=== PATIENT | female | born 1990 | race Caucasian/White ===

== ENCOUNTER 2021-10-02 17:28 | Outpatient (REF) | payer BC, SELFPAY ==
[2021-10-02 16:22] LABS: ALT 48 U/L (14-59); AST 22 U/L (15-37); Alkaline Phosphatase 73 U/L (46-116); BUN 11 mg/dL (7-18); Bilirubin, Total 0.6 mg/dL (0.2-1.0); CREATININE 0.7 mg/dL (0.55-1.02); Calcium 9.1 mg/dL (8.5-10.1); Calculated LDL 181 mg/dL (<100); Chloride 106 mmol/L (98-107); Cholesterol 270 mg/dL (<200); Glucose 119 mg/dL (74-106); HDL Cholesterol 46 mg/dL (40-60); Potassium 4.8 mmol/L (3.5-5.1); Sodium 142 mmol/L (136-145); Total Protein 7.3 g/dL (6.4-8.2); Triglyceride 215 mg/dL (<150)
== END 2021-10-02 17:29 | disposition home or self-care (01) ==
LOC: NCHCN 17:28
PROVIDERS: Visit Provider Nurse Practitioner Family
DX: Z00.00 Encounter for general adult medical examination without abnormal findings (principal); R74.01 Elevation of levels of liver transaminase levels; E78.70 Disorder of bile acid and cholesterol metabolism, unspecified
CPT/HCPCS: 80053; 80061

== ENCOUNTER 2021-11-21 11:57 | Outpatient (REF) | payer BC, SELFPAY ==
--- NOTE | 2021-11-21 09:05 | PAPFT_PTH ---
PATIENT: Tammy Simeon LOC: [facility] U#:[id number] AGE/SX: 31/F ROOM: RE11/21/[address]: Felicia Harman : 1990 BED: DIS: 11/21/2021 SPEC #: [id number] RECD: 11/21/21 16:01 STATUS: FIONA RERadha #: [id number] YOUNG: 11/21/21 09:[address]: Felicia Harman DEPT: [facility] Cytology RECD BY: Isadora Cabrera ENTERED: 11/21/21 16:02 SP TYPE: PAPFT OTHR DR: Unknown,Unknown Tissues: 1 - CX/ENDOCX FOR PAP SMEARS Procedures: PAP THIN PREP/[facility]VM Screening Comments: [id number]
== END 2021-11-21 11:58 | disposition home or self-care (01) ==
LOC: NCHCN 11:57
PROVIDERS: Visit Provider Nurse Practitioner Family
DX: Z00.00 Encounter for general adult medical examination without abnormal findings (principal); Z12.4 Encounter for screening for malignant neoplasm of cervix
CPT/HCPCS: 88142

== ENCOUNTER 2023-01-07 18:15 | Outpatient (REF) | payer BC, SELFPAY ==
[2023-01-07 19:03] LABS: Abs Immature Grans 0.03 10^3/uL (0.0-0.06); Absolute Basophil Count 0.02 10^3/uL (0.0-0.2); Absolute Eosinophil Count 0.04 10^3/uL (0.0-0.7); Absolute Lymphocyte Count 2.08 10^3/uL (1.2-3.4); Absolute Monocyte Count 0.35 10^3/uL (0.1-0.8); Absolute Neutrophil Count 4.23 10^3/uL (1.2-6.7); Basophils % 0.3; Eosinophils % 0.6; HCT 42.5 % (36.0-46.0); HGB 14.4 g/dL (11.2-15.7); Immature Grans % 0.4; Lymphocytes % 30.8; MCH 27.8 pg (27.0-33.0); MCHC 33.9 % (32.0-36.0); MCV 82 fL (80-95); MPV 9.6 fL (8.0-11.0); Monocytes % 5.2; Neutrophils % 62.7; Platelet Count 386 10^3/uL (130-400); RBC 5.18 10^6/uL (3.93-5.22); RDW 13.2 % (11.7-14.6); RDW-SD 39.3 fL; WBC 6.75 10^3/uL (4.4-10.8)
[2023-01-07 19:21] LABS: ALT 52 U/L (14-59); Albumin 4.3 g/dL (3.4-5.0); Alkaline Phosphatase 83 U/L (46-116); Anion Gap 10.7 mmol/L (3-11); BUN 12 mg/dL (7-18); Bilirubin, Total 0.3 mg/dL (0.2-1.0); CO2 24.3 mmol/L (21.0-32.0); CREATININE 0.7 mg/dL (0.55-1.02); Calcium 9.5 mg/dL (8.5-10.1); Chloride 101 mmol/L (98-107); Estimated GFR 119.24 (mL/min/1.73m2); Glucose 180 mg/dL (74-106); Sodium 136 mmol/L (136-145); Total Protein 8.1 g/dL (6.4-8.2); Uric Acid 5.7 mg/dL (2.6-6.0)
[2023-01-07 19:31] LABS: AST 31 U/L (15-37)
[2023-01-07 19:40] LABS: Hemoglobin A1C 5.8 % (<5.7)
== END 2023-01-07 18:16 | disposition home or self-care (01) ==
LOC: NCHCN 18:15
PROVIDERS: Visit Provider Nurse Practitioner Family
DX: R53.83 Other fatigue (principal); R73.9 Hyperglycemia, unspecified; R74.01 Elevation of levels of liver transaminase levels; M25.522 Pain in left elbow
CPT/HCPCS: 80053; 83036; 84443; 84550; 85025

== ENCOUNTER → 2023-07-02 00:49 | Outpatient (CLI) | payer BC, SELFPAY ==
--- NOTE | 2023-07-02 | DI.RAD_ITS ---
Exam(s) XR TIB/FIB RT EXAM: XR TIB/FIB RT CLINICAL HISTORY: ANT SHINT SPLINTS,S86.780B,INJURY. TECHNIQUE: 2D digital imaging was performed. Two views. COMPARISON: No exams were available for comparison FINDINGS: BONES: No acute fracture is present. No bony destructive lesion is seen. Visualized portion of knee a nd ankle joints are unremarkable. SOFT TISSUE: Normal. IMPRESSION: Unremarkable radiographs of the right tibia and fibula. DATA REPOSITORY: RADIATION DOSE DELIVERED:
== END ==
PROVIDERS: Visit Provider Family Medicine
DX: S86.899D Other injury of other muscle(s) and tendon(s) at lower leg level, unspecified leg, subsequent encounter (principal); X58.XXXD Exposure to other specified factors, subsequent encounter
CPT/HCPCS: 73590

== ENCOUNTER → 2023-09-16 02:50 | Outpatient (CLI) | payer BC, SELFPAY ==
--- NOTE | 2023-09-16 07:30 | DI.MRI_ITS ---
Exam(s) MR LOWER EXTREMITY RT WO EXAM: MR LOWER EXTREMITY RT WO CLINICAL HISTORY: muscle cyst vs injury,MEDIAL LT LEG MUSCLE BULGE,STRAIN,S86.911A TECHNIQUE: Multiplanar multisequence MRI was performed without intravenous contrast. COMPARISON: CR XR TIB/FIB RT from 07/02/2023 FINDINGS: BONES/JOINTS: No fracture or contusion pattern. No bone lesions identified. the knee is unremarkable as visualized. MUSCULOTENDINOUS STRUCTURES: Mild edema at the anterior aspect of the inferomedial aspect of the pat rocnemius muscle. This could indicate muscle strain. No discrete intramuscular hematoma. No drainable fluid collection. No evidence of lipoma or other mass. SOFT TISSUES: A marker was placed over the area of medial bulging. There is mild a edema in the subcu taneous fat and inferomedial aspect of the medial head of the gastrocnemius muscle. IMPRESSION: Mild edema in the inferomedial aspect of the medial head of the gastrocnemius muscle and adjacent sub cutaneous tissue. DATA REPOSITORY:
== END ==
PROVIDERS: PCP Nurse Practitioner Family; Visit Provider Student in an Organized Health Care Education/Training Program
DX: R22.41 Localized swelling, mass and lump, right lower limb (principal)
CPT/HCPCS: 73718

== ENCOUNTER 2023-10-26 18:39 | Outpatient (REF) | payer BC, SELFPAY ==
[2023-10-26 15:55] LABS: Hemoglobin A1C 5.8 % (<5.7)
[2023-10-26 16:24] LABS: ALT 39 U/L (14-59); AST 23 U/L (15-37); Albumin 4.2 g/dL (3.4-5.0); Alkaline Phosphatase 71 U/L (46-116); Anion Gap 10.4 mmol/L (3-11); BUN 10 mg/dL (7-18); Bilirubin, Total 0.4 mg/dL (0.2-1.0); CO2 25.6 mmol/L (21.0-32.0); CREATININE 0.7 mg/dL (0.55-1.02); Calcium 9.6 mg/dL (8.5-10.1); Calculated LDL 152 mg/dL (<100); Chloride 102 mmol/L (98-107); Cholesterol 264 mg/dL (<200); Estimated GFR 119.24 (mL/min/1.73m2); Glucose 111 mg/dL (74-106); HDL Cholesterol 60 mg/dL (40-60); Potassium 4.3 mmol/L (3.5-5.1); Sodium 138 mmol/L (136-145); Total Protein 7.8 g/dL (6.4-8.2); Triglyceride 262 mg/dL (<150)
== END 2023-10-26 18:40 | disposition home or self-care (01) ==
LOC: NCHCN 18:39
PROVIDERS: PCP Nurse Practitioner Family; Visit Provider Nurse Practitioner Family
DX: E78.70 Disorder of bile acid and cholesterol metabolism, unspecified (principal); R73.03 Prediabetes
CPT/HCPCS: 80053; 80061; 83036

== ENCOUNTER 2023-12-30 15:22 | Outpatient (REF) | payer BC, SELFPAY ==
--- OUTSIDE RECORDS SUMMARY | 2023-12-30 15:24 | XMS_ITS | Continuity of Care Document ---
Author Organization [facility] Address [address] [place] [address] Care Team Providers Care Engraver Copperplate Name Role Phone ELLEN NELSON APRN Primary Care Physician Encounter [facility] NBR [id number] Date(s): 12/09/23 - 12/09/23 [facility] [address], [place] [address] Encounter Diagnosis Strain of right gastrocnemius muscle(Discharge Diagnosis) - 12/09/23 Perez splint of right lower extremity(Discharge Diagnosis) - 12/09/23 Discharge Disposition: Home or Self Care Attending Physician: Caio Briceño MD Referring Physician: ELLEN NELSON APRN Allergies, Adverse Reactions, Alerts Substance Reaction Severity Status sulfa drugs Unknown Active Assessment and Plan Extracted from: Title:[place] right leg Author:Caio Briceño MD Da te:12/09/23 1.??Strain of right gastrocn emius muscle??S86.111A 2.??Perez splint of right lower extremity??S86.891A The patient demonstrates evidence of??fluid??collection about the distal medial aspect of the right gastrocnemius consistent with??a??probable myotendinous??injury with consequent??fluid accumulation. ??No elizabeth cyst is present. ??She also demonstrates evidence of a right perez splint. ??The treatment options were discussed with the patient??who will be??prescribed a course of physical therapy.?? I indicated that given the nonspecific accumulation of fluid,??this will likely??be??a cosmetic issue going forward??although??given the lack of cystic structure,??I am not sure that??anything could be done surgically to address this.?? The patient verbalized understanding and agreed with the above plan. ??All questions were answered. ??I like to see the patient in 8 weeks for follow-up. ?? I personally reviewed the patient's referral, outside consultation notes, previous radiographic images and results, and relevant tests. ?? Thank you for the courtesy of this referral. ? Future Appointments Medications No Known Medications Problem List Condition Confirmation Course Effective Dates Status H ealth Status Informant Perez splint of right lower extremity Confirmed Active Pain in right leg Confirmed Active Strain of right gastrocnemius muscle Confirmed Active Vital Signs Most recent to oldest [Reference Range]: 1 Peripheral Pulse Rate [60-100 bpm] 82 bp m (12/09/23 10:05 AM) Blood Pressure [90-140/60-90 mmHg] 110/7 0mmHg (12/09/23 10:05 AM) Mean Arterial Pressure, Cuff [65-140 mmH g] 83 mmHg (12/09/23 10:05 AM) Weight 83.91 kg (12/09/23 10:05 AM) Weight Measured (lbs) 184.99 lb (12/09/23 10:05 AM) Weight Dosing 83.910 kg (12/09/23 10:05 AM) Height 172.72 cm (12/09/23 10:05 AM) Height/Length Measured (inches) 68 inch (12/09/23 10:05 AM) BSA Measured 2.01 m2 (12/09/23 10:05 AM) Body Mass Index 28.13 kg/m2 (12/09/23 10:05 AM) Social History Social History Type Response Tobacco Never tobacco user T obacco Use:. Sex Hospital Discharge Instructions Follow Up Care 11/23/2023 15:21:02 With:Follow-up in 8 weeks Address: When: Unknown Physician Outpatient Note * Caio Briceño MD: PERFORM Event Display: Office Clinic Note Physician Authored Date: [id number] PADMAJA HERBERT :1990 Age:33 years Sex:Female Visit Date:12/09/2023 Primary Care Physician: ELLEN NELSON APRN Chief Complaint RIGHT LEG 2ND OPINION History of Present Illness Please send a copy this note to Ellen Nelson APRN. ?? 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 ??The patient states that??in March 2023, she began to train for a half marathon. ??By May 2023 she noticed bulging and fluid about the medial aspect of her right calf.?? The patient states that she had been dealing with??bad??shinsplints but denies focal injury to either lower extremity.?? The patient states that the fluid accumulation has not been painful although she has noted??pain??medially about the adjacent tibia.?? She states that??after driving for long periods of time she will experience recurrence of her pain. ??She denies??any pain with ambulation or stairs.?? She denies night pain, numbness, or tingling. ??She has been taking ibuprofen to address this. Physical Exam Vitals & Measurements HR:??82??(Peripheral)?? BP:??110/70?? SpO2:??99%?? HT:??172.72??cm?? WT:??83.91??kg?? BMI:??28.13?? Pain Score:??3?? BSA:??2.01?? The patient's??right??lower extremity is neurovascularly intact. ??Sensation and motor exam are intact distally. ??All digits are warm and pink.?? The patient is noted to ambulate with a normal gait and lorne. ??Right knee and ankle range of motion are painless.?? The??patient demonstrates??calves that are soft and nontender.?? When she flexes her??right calf,??mild, nontense fluid accumulations are noted about the distal extent of the medial calf border. ??She has tenderness in this locationwith??possible??defect??that is palpable??compared to the left side.?? She also has tenderness??abou t??the??medial border of the adjacent??tibia. Assessment/Plan 1.??Strain of right gastrocnemius muscle??S86.111A 2.??Perez splint of right lower extremity??S86.891A The patient demonstrates evidence of??fluid??collection about the distal medial aspect of the rightgastrocnemius consistent with??a??probable myotendinous??injury with consequent??fluid accumulation. ??No elizabeth cyst is present. ??She also demonstrates evidence of a right perez splint. ??The treatmen t options were discussed with the patient??who will be??prescribed a course of physical therapy.?? I indicated that given the nonspecific accumulation of fluid,??this will likely??be??a cosmetic issue going forward??although??given the lack of cystic structure,??I am not sure that??anything could be done surgically to address this.?? The patient verbalized understanding and agreed with the above plan. ??All questions were answered. ??I like to see the patient in 8 weeks for follow-up. ?? I personally reviewed the patient's referral, outside consultation notes, previous radiographic images and results, and relevant tests. ?? Thank you for the courtesy of this referral. Referral Orders Referral Management, Medical Service: Physical Therapy, Reason: PT OT: Right gastrocnemius strain with probable myotendinous injury, right perez splint, Start: 12/09/23 Follow Up Instructions With When Contact Information Follow-up in 8 weeks Additional Instructions: Problem List/Past Medical History Ongoing Pain in right leg Perez splint of right lower extremity Strain of right gastrocnemius muscle Historical No qualifying data Medications No active medications Allergies sulfa drugs Social History Electronic Cigarette/Vaping Electronic Cigarette Use: Never. Tobacco Never tobacco user Tobacco Use:. Diagnostic Results Diagnostic Study Interpretation: MRI of the patient's right leg obtained on 09/16/2023 demonstrates mild edema??about the medial aspect of the gastrocnemius??with fluid??accumulation in the subcutaneous tissue but no elizabeth cyst formation. Electronically Signed on 12/09/2023 16:20 EDT Caio Briceño MD Patient Care team information Care Team Personnel Name: ELLEN NELSON APRN Position: No Access Member Role: Primary Care Physician Address: Address: [facility] [address] [place] [address]- [place] Care Team Related Persons Name: LANRE HERBERT
--- OUTSIDE RECORDS SUMMARY | 2023-12-30 15:24 | XMS_ITS | Continuity of Care Document ---
Author Organization [facility] Address [address] [place] [address] Care Team Providers Care Service Station Operator Name Role Phone EDVIN NOBLE APRN Primary Care Physician Encounter [facility] NBR [id number] Date(s): 10/28/23 - 10/28/23 [facility] [address] [place] [address]- [place] Discharge Disposition: Home Patient Care team information Care Team Personnel Name: EDVIN NOBLE APRN Position: No Access Member Role: Primary Care Physician Address: Address: [address] [place], [place] [address]
--- OUTSIDE RECORDS SUMMARY | 2023-12-30 15:24 | XMS_ITS | Continuity of Care Document ---
Author Organization [facility] Address [address] [place] [address] Care Team Providers Care Cnc Manager Name Role Phone EDVIN NOBLE APRN Primary Care Physician [phone] Encounter [facility] NBR [id number] Date(s): 10/27/23 - 10/27/23 [facility] [address] [place] [address]- [place] Patient Care team information Care Team Personnel Name: EDVIN NOBLE APRN Position: No Access Member Role: Primary Care Physician Address: Address: [address] [place], [place] [address]
[2023-12-31 10:00] LABS: Source Nasal/Nares
[2023-12-31 10:37] LABS: COVID-19 PCR Negative (Negative)
== END 2023-12-30 15:23 | disposition home or self-care (01) ==
LOC: LBN 15:22
PROVIDERS: PCP Nurse Practitioner Family; Visit Provider Family Medicine
DX: B34.9 Viral infection, unspecified (principal)
CPT/HCPCS: 87635; 87637

== ENCOUNTER 2024-10-20 00:45 | Outpatient (CLI) | payer BC, SELFPAY ==
--- NOTE | 2024-10-20 | DI.MRI_ITS ---
Exam(s) MR BRAIN WO EXAM: MR BRAIN WO CLINICAL HISTORY: HEADACHE,R51.9 TECHNIQUE: Multiplanar multisequence MRI of the brain was performed. COMPARISON: No exams were available for comparison FINDINGS: CEREBRAL PARENCHYMA: There is no evidence of intracranial hemorrhage, mass effect, or shift of midline structures. There are no extra-axial fluid collections. Ventricles are not enlarged or shifted. There is no significant focal signal abnormality in the cerebellar hemispheres nor within the olivia, m idbrain, and thalami. There is no abnormal signal abnormality in the periventricular white matter. There is no significant focal signal abnormality evident on diffusion imaging to suggest acute ischem ic event. PITUITARY GLAND: No mass nor parasellar abnormality. No obvious abnormality in the cavernous sinuses. FLOW VOIDS: The expected flow void are noted. No evidence of obvious aneurysm nor obvious vascular ma lformation. PARANASAL SINUSES: Some mucosal thickening and retention cysts are noted in right maxillary sinus. N o associated fluid level. Other paranasal sinuses are clear and there are no mastoid effusions. ORBITS: No obvious findings. IMPRESSION: No significant intracranial findings on this noninfused MRI scan of the brain. There is a post inflammatory retention cyst in the floor of the right maxillary sinus which measures 1.8 x 1.4 cm. There is no associated fluid level nor bone dehiscence. Other paranasal sinuses are c lear. DATA REPOSITORY:
== END 2024-10-20 01:05 ==
LOC: DI 00:45
PROVIDERS: PCP Nurse Practitioner Family; Visit Provider Physician Assistant Medical
DX: R51.9 Headache, unspecified (principal); R93.0 Abnormal findings on diagnostic imaging of skull and head, not elsewhere classified
CPT/HCPCS: 70551

== ENCOUNTER 2025-01-11 15:05 | Emergency (ER) | payer BC, SELFPAY ==
--- NOTE | 2025-01-11 15:00 | RT.EKG_ITS ---
APPROVED REPORT Exam: Resting ECG Reason for Exam: sob Patient Location: E HR:112 bpm ECG Measurements Heart Rate 112 AXIS MO 150 P 77 QRSd 93 QRS 4 QT 330 T 29 QTc 451 Conclusion Sinus tachycardia...rate> 99 No STEMI
[2025-01-11 15:06] VITALS: BP 156/98; PULSE 111; RESP 16; TEMP 37.1; O2SAT 97
--- NOTE | 2025-01-11 15:41 | ED.GENADUL_ITS ---
Discharge Plan Disposition Patient Disposition: Home Condition: Stable Discharge Details Clinical Impression: Chest pain of uncertain etiology Primary Care Provider: Ellen Nelson ED Provider: Shay Tejada Home Meds and New Rx's Prescriptions: No Action No Known Home Meds Discharge Instructions Instructions: Chest Pain, Adult ED Additional Instructions: You were seen in the emergency department for the chest pain of uncertain cause, please talk to your primary care provider about possibly seeing cardiology for a treadmill stress test and possible echocardiogram if you have continued symptoms. There is no other abnormalities on your labs, no heart strain on the heart, no blood clot in the lungs, no significant signs of infection on your blood work, he had a calcified granuloma in the base of your right lung likely from an old upper respiratory infection years ago, this may need monitoring at sparse intervals to make sure it does not grow or change. Please return for any worsening symptoms especially chest pain with dizziness, shortness of breath, sweating. Referrals: Ellen Nelson [Primary Care Provider, Medicine] Discharge Data Discharge Date/Time-TO BE ENTERED AT DEPARTURE: 01/11/25 19:43 HPI General Date/Time Provider Initiated Documentation: 01/11/25 15:27 . HPI Narrative: 34 year-old female presents to ED today by POV/ambulating with a chief complaint of palpitations, chest tightness with some mild shortness of breath with onset for a couple weeks- worse on Wednesday. Quality described as generalized tightness, no radiation to diaphoresis, near syncope, fever, cough, URI. Severity is described as mild to moderate- not overtly painful. Palliating factors include nothing specific attempted. Provoking factors include nothing specific. Patient not anticoagulated. Related Data Home Medications ?Medication ?Instructions ?Recorded ?Confirmed Unknown [No Known Home Meds] 08/31/23 0 01/11/25 Allergies Allergy/AdvReac Type Severity Reaction Status Date / Time sulfadiazine Allergy Intermediate Hives Verified 01/11/25 15:09 kiwi AdvReac Other (See Verified 01/11/25 15:09 Comment) General Stated Complaint: Chest Pain ATREMIO: 3 Review of Systems All systems reviewed & are unremarkable except as noted in HPI and below Exam Narrative Exam Narrative: GENERAL APPEARANCE: Well-nourished, non-toxic, awake and alert, atraumatic, no acute distress. SKIN: Warm, pink, dry, intact, without rashes/lesions/ulcerations. HEAD: Normocephalic, atraumatic, normal hair distribution for gender/age. EYES: Normal conjunctiva, no exudates on lids/lashes. ENT: Nares patent, no circumoral cyanosis, no facial swelling NECK: Supple, trachea midline, painless cervical ROM. LUNGS/CHEST: Lungs CTA bilaterally, non-labored respirations, normal A/P diameter, symmetrical expansion, no chest wall deformity HEART (CV/PV): Regular rate and rhythm without murmur, no peripheral edema, no JVD. ABDOMEN: Soft, non-distended, no guarding. MSK: Normal ROM, no swelling/deformity to bilateral UEs or LEs, moving all extremities without weakness, no cyanosis, spine midline without tenderness, normal curvature. NEURO: Mental Status AAOx4 - alert to person, place, time, events No facial droop, no forehead involvement. Motor: No focal weakness - strength 5/5 in bilateral UEs and LEs, proximal and distal, symmetric. Sensory: sensation intact to light touch globally. Gait normal: patient ambulated without ataxia into ED room. PSYCH: euthymic, cooperative, pleasant, appropriate speech Course Vital Signs Vital signs: Vital Signs Temperature 37.1 C 01/11/25 15:06 Pulse 111 H 01/11/25 15:06 Respiratory Rate 16 01/11/25 15:06 Blood Pressure 156/98 H 01/11/25 15:06 Pulse Oximetry 97 01/11/25 15:06 Temperature 37.1 C 01/11/25 15:06 Pulse 111 H 01/11/25 15:06 Respiratory Rate 16 01/11/25 15:06 Blood Pressure 156/98 H 01/11/25 15:06 Pulse Oximetry 97 01/11/25 15:06 Pain Level 0 01/11/25 15:06 Medical Decision Making This dictation utilizes [id number] dictation software and may contain unedited grammatical errors. 34 year-old female presents to ED today by POV/ambulating with a chief complaint of palpitations, chest tightness with some mild shortness of breath with onset for a couple weeks- worse on Wednesday. Quality described as generalized tightness, no radiation to diaphoresis, near syncope, fever, endorses mild cough/URI. Severity is described as mild to moderate- not overtly painful. Palliating factors include nothing specific attempted. Provoking factors include nothing specific. Patients' medical history: anxiety. Family and social history: noncontributory. Pertinent exam findings / vital signs include benign cardiopulmonary exam, neuro intact, afebrile. Differential / pathologies of concern include costochondritis, ACS, PE, upper respiratory infection. Diagnostic studies of: - CBC, CMP, lactate, D-dimer, magnesium, troponin, TSH, lipase, COVID/flu/RSV PCR, EKG, XR chest, CT chest without contrast. - CBC shows no acute abnormality - D-dimer negative - Lactate negative - CMP shows no actionable abnormality - Troponin stable with reliable onset - Magnesium within normal limits - Lipase negative - TSH within normal limits - COVID/flu/RSV negative - X-ray chest shows nodular density in the right lung which was followed up with CT which shows a 7 mm calcified granuloma likely from an old respiratory infection - EKG shows no ischemic changes, no T wave inversions, no ST depressions, no arrhythmia Interventions of: -None. ED Course/Assessment/Plan: 34-year-old otherwise healthy female presents with a few days of intermittent chest pain that comes and goes, mild cough endorsed, no respiratory distress. Cardiac workup negative, no PE by D-dimer, PCR swab negative, no abnormalities on chest x-ray or chest CT, no electrolyte abnormalities or signs of infection, possibly costochondritis versus anxiety recommend outpatient follow-up with primary care provider. Findings not consistent with ACS, sepsis, PE, PNA, PTX, Covid/Flu, respiratory distress. Disposition of Chest Pain of Uncertain Etiology. Patient verbalized understanding of the plan and return to ED criteria and engaged in shared decision making. Medical Records Medical records reviewed: Yes I reviewed the patient's medical records. Imaging Data Radiologic Study: Attestation: I personally reviewed and interpreted this imaging study as follows: Imaging: X-Ray Radiologist's impression: EXAM: XR CHEST 2V PA LATERAL CLINICAL HISTORY: chest tightness, palpitations. TECHNIQUE: 2D digital imaging was performed. COMPARISON: No exams were available for comparison FINDINGS: 2 views: Heart size is normal. The mediastinum is not widened. There are no confluent pulmonary infiltrates nor pleural effusions. Around nodular density in the lower half the right lung field measures 7 millimeters. It has a benign appearance. May represent vessel visualized end-on IMPRESSION: No acute pulmonary findings. Radiologic Study #2: Attestation: I personally reviewed and interpreted this imaging study as follows: Imaging: CT Scan Radiologist's impression: EXAM: CT CHEST WO CLINICAL HISTORY: R lung nodule. TECHNIQUE: Multi planar reconstructions were performed. CONTRAST MATERIAL: None COMPARISON: CR XR CHEST 2V PA LATERAL from 01/11/2025 FINDINGS: CHEST: LUNGS: There is a benign calcified granuloma in the right lower lobe which measures 8 mm and which corresponds to the finding on the chest x-ray earlier today. There are no ominous pulmonary nodules, infiltrates, nor pleural effusions. MEDIASTINUM: There are few small benign calcified lymph nodes in the right hilar and subcarinal region,, commensurate with the granuloma in the right lung. There is no pathologic appearing intrathoracic adenopathy. Partially visualized thyroid appears unremarkable.No supraclavicular adenopathy. No axillary adenopathy. CARDIAC: Heart size is normal. There is no pericardial effusion.Caliber of the thoracic aorta is within normal limits. VISUALIZED UPPER ABDOMEN:There is a small hypodense nodule in the left adrenal gland which measures 1.0 x 1.0 cm, probably incidental adenoma. The opposite- right adrenal gland appears unremarkable. OSSEOUS: No significant osseous lesions.No fractures.. IMPRESSION: 1. No acute pulmonary findings. 2. Calcified granuloma in the right lower lobe corresponds to the finding on the CXR from earlier today. 3. No pleural effusions. Lab Data Lab results reviewed: Yes I reviewed the patient's lab results. Labs: Laboratory Tests Range/Units 01/11/25 01/11/25 01/11/25 15:25 15:51 16:36 WBC (4.4-10.8) 10^3/uL 5.20 RBC (3.93-5.22) 10^6/uL 4.78 Hgb (11.2-15.7) g/dL 13.0 Hct (36.0-46.0) % 38.6 MCV (80-95) fL 81 MCH (27.0-33.0) pg 27.2 MCHC (32.0-36.0) % 33.7 RDW (11.7-14.6) % 13.1 Plt Count (130-400) 10^3/uL MPV (8.0-11.0) fL Immature Gran % % 0.2 Neutrophils % % 53.8 Lymphocytes % % 39.6 Monocytes % % 5.2 Eosinophils % % 0.6 Basophils % % 0.6 Nucleated RBC % (0.0-0.3) % 0.0 Absolute Neutrophils (1.2-6.7) 10^3/uL 2.80 Absolute Lymphocytes (1.2-3.4) 10^3/uL 2.06 Absolute Monocytes (0.1-0.8) 10^3/uL 0.27 Absolute Eosinophils (0.0-0.7) 10^3/uL 0.03 Absolute Basophils (0.0-0.2) 10^3/uL 0.03 RBC Morphology Normal D-Dimer (<500) ng/mlFEU 169 VBG Lactate (<or=2.0) mmol/L 1.5 Sodium Cancelled 139 Potassium Cancelled 3.5 Chloride Cancelled 105 Carbon Dioxide Cancelled 25.1 Anion Gap Cancelled 8.9 BUN Cancelled 12 Creatinine Cancelled 0.7 Est GFR (CKD-EPI 2020) Cancelled 117.77 Glucose Cancelled 146 H Calcium Cancelled 9.0 Magnesium Cancelled 2.0 Total Bilirubin Cancelled 0.3 AST Cancelled 15 ALT Cancelled 33 Alkaline Phosphatase Cancelled 71 Troponin I Cancelled 7 Total Protein Cancelled 7.2 Albumin Cancelled 4.0 Lipase Cancelled 46 TSH Cancelled 0.50 COVID-19 Source Nasopharynx SARS-CoV-2 (PCR) (Negative) Negative Influenza Type A (PCR) (Negative) Negative Influenza Type B (PCR) (Negative) Negative RSV (PCR) (Negative) Negative PFSH All Active Problems (Updated 01/11/25 @ 19:17 by CHRISTIANO Sánchez) Chest pain of uncertain etiology (Acute) Muscle strain of right lower leg (Acute) Anterior kennedy splints (Acute) Anxiety (Chronic) Medical History (Updated 01/11/25 @ 19:17 by CHRISTIANO Sánchez) Joint effusion Dyspareunia in female Vaginospasm Social History Smoking/Tobacco Use Status: Never Smoking risk assessment performed?: Yes Alcohol Intake: current Alcohol Intake frequency: holidays/special occasions only Drug use: Never Substance use type: does not use Housing: house Do you feel safe at home: Yes Do you feel safe in your relationship?: Yes
[2025-01-11 15:49] LABS: Abs Immature Grans 0.01 10^3/uL (0.0-0.06); HCT 38.6 % (36.0-46.0); HGB 13.0 g/dL (11.2-15.7); Immature Grans % 0.2 %; MCH 27.2 pg (27.0-33.0); MCHC 33.7 % (32.0-36.0); MCV 81 fL (80-95); RBC 4.78 10^6/uL (3.93-5.22); RDW 13.1 % (11.7-14.6); RDW-SD 38.3 fL; WBC 5.20 10^3/uL (4.4-10.8)
[2025-01-11 16:15] LABS: D-Dimer 169 ng/mlFEU (<500)
--- NOTE | 2025-01-11 16:15 | DI.RAD_ITS ---
Exam(s) XR CHEST 2V PA LATERAL EXAM: XR CHEST 2V PA LATERAL CLINICAL HISTORY: chest tightness, palpitations. TECHNIQUE: 2D digital imaging was performed. COMPARISON: No exams were available for comparison FINDINGS: 2 views: Heart size is normal. The mediastinum is not widened. There are no confluent pulmonary infiltrates nor pleural effusions. Around nodular density in the lower half the right lung field measures 7 millimeters. It has a benign appearance. May represent vessel visualized end-on IMPRESSION: No acute pulmonary findings. DATA REPOSITORY: RADIATION DOSE DELIVERED:
[2025-01-11 16:19] LABS: RBC Morphology Normal
[2025-01-11 16:40] LABS: COVID-19 PCR Negative (Negative); RSV PCR Negative (Negative)
--- NOTE | 2025-01-11 17:09 | DI.CT_ITS ---
Exam(s) CT CHEST WO EXAM: CT CHEST WO CLINICAL HISTORY: R lung nodule. TECHNIQUE: Multi planar reconstructions were performed. CONTRAST MATERIAL: None COMPARISON: CR XR CHEST 2V PA LATERAL from 01/11/2025 FINDINGS: CHEST: LUNGS: There is a benign calcified granuloma in the right lower lobe which measures 8 mm and which corresponds to the finding on the chest x-ray earlier today. There are no ominous pulmonary nodules, infiltrates, nor pleural effusions. MEDIASTINUM: There are few small benign calcified lymph nodes in the right hilar and subcarinal region,, commensurate with the granuloma in the right lung. There is no pathologic appearing intrathoracic adenopathy. Partially visualized thyroid appears unremarkable.No supraclavicular adenopathy. No axillary adenopathy. CARDIAC: Heart size is normal. There is no pericardial effusion.Caliber of the thoracic aorta is within normal limits. VISUALIZED UPPER ABDOMEN:There is a small hypodense nodule in the left adrenal gland which measures 1.0 x 1.0 cm, probably incidental adenoma. The opposite- right adrenal gland appears unremarkable. OSSEOUS: No significant osseous lesions.No fractures.. IMPRESSION: 1. No acute pulmonary findings. 2. Calcified granuloma in the right lower lobe corresponds to the finding on the CXR from earlier today. 3. No pleural effusions. Report called by myself to ER provider 01/11/2025 at 6:12 p.m. RADIATION DOSE DELIVERED: 226.6mGy.cm Total DLP DATA REPOSITORY: All CT scans at this facility are submitted to the National Radiology Data Registry (NRDR) Dose Index Registry (DIR) with the [employer] ([employer]). RADIATION OPTIMIZATION: All CT scans at this facility use at least one of these dose optimization techniques: automated exposure control; mA and/or kV adjustment per patient size (includes targeted exams where dose is matched to clinical indication); or iterative reconstruction.
[2025-01-11 17:12] LABS: ALT 33 U/L (14-59); AST 15 U/L (15-37); Albumin 4.0 g/dL (3.4-5.0); Alkaline Phosphatase 71 U/L (46-116); Anion Gap 8.9 mmol/L (3-11); BUN 12 mg/dL (7-18); Bilirubin, Total 0.3 mg/dL (0.2-1.0); CO2 25.1 mmol/L (21.0-32.0); Calcium 9.0 mg/dL (8.5-10.1); Chloride 105 mmol/L (98-107); Estimated GFR 117.77 (mL/min/1.73m2); Glucose 146 mg/dL (74-106); Lipase 46 U/L (<78); Magnesium 2.0 mg/dL (1.8-2.4); Potassium 3.5 mmol/L (3.5-5.1); Sodium 139 mmol/L (136-145); TSH (W/Ref FT4) 0.50 uIU/mL (0.36-3.74); Total Protein 7.2 g/dL (6.4-8.2); Troponin I 7 ng/L (<or=51)
[2025-01-11 18:15] VITALS: BP 124/75; PULSE 86; RESP 18; O2SAT 99
[2025-01-11 19:33] VITALS: BP 124/75; PULSE 64; TEMP 36.6; O2SAT 100
[2025-01-12 11:52] LABS: Lyme Ab w Rflx to Lyme Confirm Negative (Negative)
[2025-01-14 18:50] LABS: B. miyamotoi PCR Negative (Negative); Babesia divergens/MO-1 Negative (Negative); Ehrlichia muris eauclairensis Negative (Negative)
== END 2025-01-11 19:43 | disposition home or self-care (01) ==
PROVIDERS: Emergency Provider Physician Assistant; PCP Nurse Practitioner Family
DX: R07.9 Chest pain, unspecified (principal); R00.2 Palpitations
CPT/HCPCS: 99285; 99284; 36415; 71250; 80053; 83690; 87637; 87798; 93005; 71046; 83605; 83735; 84443; 84484; 85025; 85379; 86618; 93010